=== PATIENT | female | born 1980 | race African-American/Black ===

== ENCOUNTER 2016-11-30 17:43 | Emergency (ER) | payer MEDICAID ==
--- NOTE | 2016-11-30 18:01 | ER Document Report ---
ED Medical Screen (RME) - General Stated Complaint: VAGINAL PAIN Notes: onset: today, sudden onset s/a with one partner, denies discharge, bleeding LMP: 11/23/16 PMH: HTN but hasnt started her home medications, HIV I have greeted and performed a rapid initial assessment of this patient. A comprehensive ED assessment and evaluation of the patient, analysis of test results and completion of the medical decision making process will be conducted by additional ED providers. Physical Exam - Vital signs Vitals: Temp Pulse Resp BP Pulse Ox 98.0 F 111 H 16 187/114 H 100 11/30/16 17:55 11/30/16 17:55 11/30/16 17:55 11/30/16 17:55 11/30/16 17:55 Course - Vital Signs Vital signs: Temp Pulse Resp BP Pulse Ox 98.0 F 111 H 16 187/114 H 100 11/30/16 17:55 11/30/16 17:55 11/30/16 17:55 11/30/16 17:55 11/30/16 17:55
[2016-11-30 19:04] LABS: APPEARANCE,URINE SLIGHTLY-CLOUDY; BILIRUBIN,URINE NEGATIVE (NEGATIVE); GLUCOSE, URINE NEGATIVE (NEGATIVE); KETONES,URINE NEGATIVE (NEGATIVE); LEUKOCYTE ESTERASE,URINE NEGATIVE (NEGATIVE); NITRITE,URINE NEGATIVE (NEGATIVE); PROTEIN,URINE 30 mg/dL (NEGATIVE); URINE SPECIFIC GRAVITY 1.024; UROBILINOGEN,URINE NEGATIVE mg/dL (<2.0)
[2016-11-30] MEDS ORDERED: HYDROCODONE/ACETAMINOPHEN 5-325 MG 6 TAB/DSPK PO PRN (21:32)
--- NOTE | 2016-11-30 21:32 | ER Document Report ---
ED GI/ - General Chief Complaint: Vaginal Pain Stated Complaint: VAGINAL PAIN Time seen by provider: 20:00 Mode of Arrival: Ambulatory Information source: Patient - HPI Patient complains to provider of: Pelvic pain, Vaginal bleeding Onset: This afternoon Timing/Duration: Sudden Quality of pain: Sharp, Stabbing Severity at maximum: Moderate Severity in ED: Almost gone Location: Pelvis Vaginal bleeding (Compared to normal period): Similar Menstrual period history: Abnormal Exacerbated by: Denies Relieved by: Denies Similar symptoms previously: Yes Recently seen / treated by doctor: No Notes: 12/01/16 02:54 Patient is a 36 rolled female presenting to the emergency room complaining of pelvic pain that started this afternoon and has nearly resolved at time of my evaluation, as well as vaginal bleeding that started today, she reports that she had a normal menstrual cycle last week, bleeding ended on Sunday, and started up again today, she does report having similar crampy pelvic pain with menstrual cycles in the past, she denies any dysuria, no injury, no nausea, vomiting or diarrhea, she reports that she's been seen for these symptoms in the past and was diagnosed with constipation, she does report her last bowel movement was this afternoon and normal Past Medical History - General Information source: Patient - Social History Smoking Status: Never Smoker Family History: Reviewed & Not Pertinent Review of Systems - Review of Systems Constitutional: No symptoms reported EENT: No symptoms reported Cardiovascular: No symptoms reported Respiratory: No symptoms reported Gastrointestinal: No symptoms reported Genitourinary: No symptoms reported Female Genitourinary: See HPI Musculoskeletal: No symptoms reported Skin: No symptoms reported Hematologic/Lymphatic: No symptoms reported Neurological/Psychological: No symptoms reported -: Yes All other systems reviewed and negative Physical Exam - Vital signs Vitals: Temp Pulse Resp BP Pulse Ox 98.0 F 111 H 16 187/114 H 100 11/30/16 17:55 11/30/16 17:55 11/30/16 17:55 11/30/16 17:55 11/30/16 17:55 Interpretation: Normal - General General appearance: Appears well, Alert - HEENT Head: Normocephalic, Atraumatic Eyes: Normal Pupils: PERRL - Respiratory Respiratory status: No respiratory distress Chest status: Nontender Breath sounds: Normal Chest palpation: Normal - Cardiovascular Rhythm: Regular Heart sounds: Normal auscultation Murmur: No - Abdominal Inspection: Normal Distension: No distension Bowel sounds: Normal Tenderness: Nontender Organomegaly: No organomegaly - Genitourinary External exam: Normal Speculum exam: Cervix closed Vaginal bleeding: Moderate Bimanuel exam: Normal - Back Back: Normal, Nontender - Extremities General upper extremity: Normal inspection, Nontender, Normal color, Normal ROM , Normal temperature General lower extremity: Normal inspection, Nontender, Normal color, Normal ROM , Normal temperature, Normal weight bearing. No: Asif's sign - Neurological Neuro grossly intact: Yes Cognition: Normal Orientation: AAOx4 [place] Coma Scale Eye Opening: Spontaneous Beau Coma Scale Verbal: Oriented Beau Coma Scale Motor: Obeys Commands Beau Coma Scale Total: 15 Speech: Normal Motor strength normal: LUE, RUE, LLE, RLE Sensory: Normal - Psychological Associated symptoms: Normal affect, Normal mood - Skin Skin Temperature: Warm Skin Moisture: Dry Skin Color: Normal Course - Re-evaluation Re-evalutation: 12/01/16 02:56 12/01/16 02:56 Laboratory findings discussed with patient at bedside which are relatively unremarkable, patient was advised to follow-up with her [facility] within the next 2 -3 days or return if symptoms worsen, patient acknowledges understanding and agreement with this plan - Vital Signs Vital signs: Temp Pulse Resp BP Pulse Ox 98.0 F 80 18 182/114 H 98 11/30/16 17:55 11/30/16 21:50 11/30/16 21:50 11/30/16 21:50 11/30/16 21:50 - Laboratory Laboratory results interpreted by me: 11/30/16 18:14 Urine Protein 30 H Urine Blood LARGE H Discharge - Discharge Clinical Impression: Dysfunctional uterine bleeding, Pelvic pain Condition: Stable Disposition: HOME, SELF-CARE Instructions: Dysfunctional Uterine Bleeding ([facility]), Pelvic Pain ([facility]) Additional Instructions: Follow up with your primary care provider and [facility] in one to 2 days. Return to the emergency room immediately if symptoms worsen or any additional concerns.
[2016-11-30 21:50] VITALS: BP 182/114
[2016-11-30 23:16] LABS: CHLAM PCR NOT DETECTED (NOT DETECT)
== END 2016-11-30 21:49 | disposition home or self-care (01) ==
LOC: ER 17:43
DX: N93.8 Other specified abnormal uterine and vaginal bleeding (principal); R10.2 Pelvic and perineal pain
CPT/HCPCS: 81001; 81025; 87210; 87491; 87591; 99284

== ENCOUNTER 2017-12-24 11:07 | Emergency (ER) | payer SELFPAY ==
[2017-12-24 11:18] VITALS: BP 137/73
[2017-12-24] MEDS ORDERED: PENICILLIN V POTASSIUM 500 MG TABLET PO ONE (12:41)
[2017-12-24] MEDS ORDERED: LIDOCAINE 2% VISCOUS SOLN 20 ML UDCUP PO ONE (12:41)
--- NOTE | 2017-12-24 12:45 | ER Document Report ---
ED Oral Problem - General Chief Complaint: Toothache Stated Complaint: TOOTH PAIN Time Seen by Provider: 12/24/17 12:32 Mode of Arrival: Ambulatory Information source: Patient Notes: 37-year-old female presents to ED for complaint of dental pain since last Sunday to tooth #17 and 18. She states she is visiting here from out of state from [place] and has not seen a dentist yet she states she has pain at 5 out of 5. TRAVEL OUTSIDE OF THE [place] IN LAST 30 DAYS: No - HPI Patient complains to provider of: Toothache Onset: Last week Onset: Gradual Quality of pain: Sharp, Throbbing Severity: Moderate Pain Level: 4 Associated symptoms: Toothache Worsened by: Cold Relieved by: Nothing Similar symptoms previously: Yes Recently seen / treated by doctor/dentist: No - Related Data Allergies/Adverse Reactions: sulfamethoxazole [From Bactrim] Allergy (Verified 12/24/17 11:11) Hives trimethoprim [From Bactrim] Allergy (Verified 12/24/17 11:11) Hives Past Medical History - General Information source: Patient - Social History Smoking Status: Never Smoker Cigarette use (# per day): No Chew tobacco use (# tins/day): No Smoking Education Provided: No Frequency of alcohol use: None Drug Abuse: None Lives with: Parents Family History: CAD, DM, Hyperlipidemia, Hypertension, Malignancy. denies: COPD , CVA, Thyroid Disfunction Patient has suicidal ideation: No Patient has homicidal ideation: No - Past Medical History Cardiac Medical History: Reports: Hx Hypertension, Hx Heart Murmur Pulmonary Medical History: Reports: None EENT Medical History: Reports: None Neurological Medical History: Reports: None Endocrine Medical History: Reports: None Renal/ Medical History: Reports: None Malignancy Medical History: Reports: None GI Medical History: Reports: None Musculoskeltal Medical History: Reports None Skin Medical History: Reports None Psychiatric Medical History: Reports: None Traumatic Medical History: Reports: None Infectious Medical History: Reports: Hx HIV Surgical Hx: Negative Past Surgical History: Reports: None Review of Systems - Review of Systems Constitutional: No symptoms reported EENT: Dental problem Cardiovascular: No symptoms reported Respiratory: No symptoms reported Gastrointestinal: No symptoms reported Genitourinary: No symptoms reported Female Genitourinary: No symptoms reported Musculoskeletal: No symptoms reported Skin: No symptoms reported Hematologic/Lymphatic: No symptoms reported Neurological/Psychological: No symptoms reported -: Yes All other systems reviewed and negative Physical Exam - Vital signs Vitals: Temp Pulse Resp BP Pulse Ox 98.4 F 94 14 137/73 H 99 12/24/17 11:17 12/24/17 11:17 12/24/17 11:17 12/24/17 11:17 12/24/17 11:17 Interpretation: Normal - General General appearance: Appears well, Alert - HEENT Head: Normocephalic, Atraumatic Eyes: Normal Pupils: PERRL Ears: Normal External canal: Normal Tympanic membrane: Normal Sinus: Normal Nasal: Normal Mouth/Lips: Caries Mucous membranes: Normal Teeth diagram: 1 - Cavities to tooth #17 and 19 that have been there for a long time. Patient states that she does not have insurance so patient has not been to a dentist yet. - Respiratory Respiratory status: No respiratory distress Chest status: Nontender Breath sounds: Normal Chest palpation: Normal - Cardiovascular Rhythm: Regular Heart sounds: Normal auscultation Murmur: No - Abdominal Inspection: Normal Distension: No distension Bowel sounds: Normal Tenderness: Nontender Organomegaly: No organomegaly - Back Back: Normal, Nontender - Extremities General upper extremity: Normal inspection, Nontender, Normal color, Normal ROM , Normal temperature General lower extremity: Normal inspection, Nontender, Normal color, Normal ROM , Normal temperature, Normal weight bearing. No: Asif's sign - Neurological Neuro grossly intact: Yes Cognition: Normal Orientation: AAOx4 Beau Coma Scale Eye Opening: Spontaneous [place] Coma Scale Verbal: Oriented Beau Coma Scale Motor: Obeys Commands [place] Coma Scale Total: 15 Speech: Normal Motor strength normal: LUE, RUE, LLE, RLE Sensory: Normal - Psychological Associated symptoms: Normal affect, Normal mood - Skin Skin Temperature: Warm Skin Moisture: Dry Skin Color: Normal Course - Re-evaluation Re-evalutation: 12/24/17 21:22 Patient was treated with Penicillin VK and viscous lidocaine for her dental pain to tooth #17 and 18. Patient was instructed that this was only a temporary fix that she really needs to go to a dentist and have these teeth either pulled or treated. Patient states the viscous lidocaine really relieved her pain and she verbalized understanding that she needed to take the prescription of penicillin until it was completed. - Vital Signs Vital signs: Temp Pulse Resp BP Pulse Ox 98.4 F 94 14 137/73 H 99 12/24/17 11:17 12/24/17 11:17 12/24/17 11:17 12/24/17 11:17 12/24/17 11:17 Discharge - Discharge Clinical Impression: Pain due to dental caries Condition: Stable Disposition: HOME, SELF-CARE Instructions: Acetaminophen, Family Physicians / Practices, Use of Over-The- Counter Ibuprofen ([facility]) Additional Instructions: TOOTHACHE: Your pain is due to dental decay. The tooth must be repaired in order for you to feel better. You will, therefore, be referred to a dentist. We do not have dentists on the staff at [facility]. Severe swelling or drainage around a tooth usually means a dental abscess. This also requires evaluation and treatment by the dentist, but antibiotics may be prescribed while awaiting dental treatment. You should be rechecked immediately if you develop major swelling of the face, increasing pain, a lump in the jaw or gums, headache, difficulty swallowing, or fever. PENICILLIN V K: You have been given a prescription for Penicillin VK. Your physician has determined that this is the best antibiotic for your condition. Pen VK can be taken with meals, however more of the antibiotic gets into the bloodstream if it's taken on an empty stomach. Penicillin usually has no side effects. However, allergy to penicillins is common. If you have had an allergic reaction to any drug of the penicillin family, you should never take any other penicillin. Notify your doctor at once if you develop hives, itching, swelling, faintness, or shortness of breath. You have been given a syringe of viscous lidocaine apply a small amount to the tooth every 1-2 hours for pain. Other than that she can use Tylenol or Motrin. It is very important that you follow-up with a dentist to have the tooth pulled or repaired as this is only a interim CARE it needs to be treated by a dentist. FOLLOW-UP CARE: You have been referred for follow-up care to the dentists listed below. Call the dentists office for an appointment as you were instructed or within the next two days. If you experience worsening or a significant change in your symptoms, notify the physician immediately or return to the Emergency Department at any time for re-evaluation. [facility] [address] [place], [place] [facility] [address] [place] [address] [facility] [address] [facility] [address] [facility] [address] [email or web address] [address] [place] [address] Sunday- 8:00am to 5:00 pm Will see patients from other [facility]. Charges based on income and family size and accepts Medicare, Medicaid, and Insurances Will pull molars [facility] [id number] Hours of Operation 8:00 am - 4:30 pm weekdays The following dental offices accept Medicaid: [facility] Dr. Younger Dr. Sarabia Dr. Martinez Dr. Nascimento Ian Whitehead L[place], and [place] [facility] Dr. Keith ([place]) Dr. Gill ([place]) [facility] Drs. Copeland and Young ([place]) Dr. Hernandez ([place]) [facility] Dr. Morley ([place]) Drs. Sarmiento and ([place]) Medicaid Care Line Prescriptions: Penicillin V Potassium [Penicillin Vk 500 mg Tablet] 500 mg PO BID #20 tablet
== END 2017-12-24 13:02 | disposition home or self-care (01) ==
LOC: ER 11:07
DX: K02.9 Dental caries, unspecified (principal); K08.89 Other specified disorders of teeth and supporting structures; I10 Essential (primary) hypertension; Z21 Asymptomatic human immunodeficiency virus [HIV] infection status; Z88.1 Allergy status to other antibiotic agents
CPT/HCPCS: 99282; J3490